=== PATIENT | female | born 1970 | race American Indian/Alaskan Native ===

== ENCOUNTER 2021-07-01 15:11 | Emergency (ER) | payer BC ==
[2021-07-01 16:46] VITALS: BP 149/72
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
== END 2021-07-01 20:00 | disposition home or self-care (01) ==
LOC: ED 15:11
DX: M54.9 Dorsalgia, unspecified (principal); M54.2 Cervicalgia; R51.9 Headache, unspecified; V89.2XXA Person injured in unspecified motor-vehicle accident, traffic, initial encounter; Y93.89 Activity, other specified; Y92.89 Other specified places as the place of occurrence of the external cause; Y99.8 Other external cause status
CPT/HCPCS: 99281